=== PATIENT | female | born 1950 | race Caucasian/White ===

== ENCOUNTER → 2021-07-14 | Outpatient (CLI) | payer OTHER ==
[~2021-07-14] MED LIST: BONIVA150 MG PO; CALCIUM 500 +1 EAC5 PO; ETODOLAC 400 M400 MG PO; LYRICA 75 MG CA75 MG PO; METHOCARBAMOL PO; NEURONTIN600 MG PO; PERCOCET 10-321 EACH PO; PROZAC10 MG PO; ROBAXIN 750 MG750 M1 PO; TRAMADOL 50 MG50 MG PO; TRAMADOL HCL50 MG PO; TUMS PO; TYLENOL325 MG PO; VAGIFEM10 MCG VG; VESICARE 5 MG TA5 MG PO; XARELTO10 MG PO; ZOCOR20 MG PO
== END ==
LOC: SJCVC 13:21
PROVIDERS: ATTEND Internal Medicine Cardiovascular Disease
DX: R94.31 Abnormal electrocardiogram [ECG] [EKG] (principal); I38 Endocarditis, valve unspecified; I44.0 Atrioventricular block, first degree; E78.00 Pure hypercholesterolemia, unspecified; F32.9 Major depressive disorder, single episode, unspecified; Z87.891 Personal history of nicotine dependence; Z72.89 Other problems related to lifestyle; Z79.899 Other long term (current) drug therapy; Z82.49 Family history of ischemic heart disease and other diseases of the circulatory system